=== PATIENT | female | born 1990 | race Caucasian/White ===

== ENCOUNTER 2025-01-01 12:14 | Emergency (ER) | payer BC, MEDICAID ==
[~2025-01-01] VITALS: Ht 165.1 cm; Wt 92.4 kg
[~2025-01-01 12:14] MED LIST: NO HOME MEDS
[2025-01-01 12:23] VITALS: BP 149/80; PULSE 79; O2SAT 98
[2025-01-01 12:45] LABS: BILIRUBIN,URINE NEGATIVE (Neg); CLARITY,URINE CLEAR (Clear); COLOR,URINE YELLOW (Yellow); GLUCOSE, URINE NEGATIVE (Neg); KETONES,URINE NEGATIVE (Neg); LEUKOCYTE ESTERASE ,URINE NEGATIVE (Neg); NITRITES, URINE NEGATIVE (Neg); OCCULT BLOOD,URINE NEGATIVE (Neg); PH,URINE 6.5 (4.8-8.0); PROTEIN,URINE NEGATIVE (Neg); UROBILINOGEN,URINE 0.2 E.U/dL (0.2-1.0)
[2025-01-01 12:50] LABS: UA COLLECTION TYPE CLN CATCH MIDSTREAM
--- NOTE | 2025-01-01 12:56 | RADIOLOGY REPORT ---
EXAM: XR Lumbosacral Spine, 2 or 3 Views CLINICAL INDICATION: FALL TECHNIQUE: Frontal and lateral views of the lumbar spine and sacrum. COMPARISON: None FINDINGS: VERTEBRAE: Unremarkable. No acute fracture. Normal alignment. SACRUM/COCCYX: Unremarkable as visualized. No acute fracture. DISC SPACES: No acute findings. No significant narrowing. SOFT TISSUES: Unremarkable. OTHER FINDINGS: . IMPRESSION: No acute fracture.
[2025-01-01 14:11] LABS: HCG SERUM QL NEGATIVE
--- NOTE | 2025-01-01 14:46 | Physician Documentation ---
History of Present Illness ~ Chief Complaint: Mechanical Fall Stated Complaint: BACK PAIN Time Seen by MD: 14:36 OK to notify your PCP?: Yes Primary Medical Doctor: no md HPI He is a 34-year-old female presenting to our emergency department with reports of left sided musculoskeletal low back pain with sitting and moving certain directions. She reports falling down about 3 stairs earlier today and landed on her lower back, no loss consciousness, no head strike, no thinners. She did put her right hand down to catch her fall and there is no abrasions or pain to that hand. Concerns that 8 weeks ago she did have an ectopic for which they removed her fallopian tube and has had 0 complications, denies any vaginal bleeding at this time. Medication Reconciliation Allergies: Coded Allergies: Sulfa (Sulfonamide Antibiotics) (Verified Allergy, Unknown, 01/01/25) aspirin (Verified Adverse Reaction, Unknown, NAUSEA, 01/01/25) Scheduled Cyclobenzaprine* (Cyclobenzaprine*), 1 TAB PO HS, (Reported) Lidocaine (Lidoderm), 1 PATCH TOP DAILY, (Reported) Miscellaneous Medications Home Med List (No Home Medications), (Reported) Past Medical History Past Medical History: No Pertinent History Past Surgical History: no surgical history Alcohol Use: None Lives with: Spouse Lives In: Home Review of Systems ROS All symptoms of systems reviewed and negative except mentioned in HPI. Physical Exam Vital Signs: RN Vital Signs have been reviewed: Yes, Temperature: 98.1, Source: Oral, Heart Rate: 79, Respiratory Rate: 18, BP: 149/80, Pulse Oximetry: 98, Weight: 92.400 Physical Exam General: conscious, coherent, non-toxic appearing, follows commands appropriately and in no apparent distress. Skin: Warm and dry without rash. HEENT: Head: Normocephalic without evidence of trauma. Eyes: Sclerae and conjunctiva normal. Ears: No external erythema or edema. Nose/face: No rhinorrhea. Mouth/throat: Mucous membranes are moist. Neck: Supple. Trachea midline. No JVD. Chest: Good expansion without retractions or grunting. Equal chest rise and fall. Lungs clear bilaterally to auscultation. Heart: No cyanosis. S1 and S2 normal. No murmurs gallops clicks or rubs. Extremities: Full range of motion. Good strength, bilaterally. No cyanosis, clubbing or edema. Neurologic: A&Ox4. Moves all extremities. Speech is clear. Gait normal. Back: normal inspection, no CVA tenderness, no vertebral tenderness, muscle spasm, tender Back Pain with palpation to left lumbar area muscles. Progress Results/Orders Results/Orders Completed Orders - ALESIA QUICK [employer]NA[employer] Ketorolac Trometh 30mg/Ml Vial (Toradol (01/01/25 14:50) Cyclobenzaprine Tablet (Flexeril Tablet) (01/01/25 14:50) Medications Received in ER Medications (Trade) Dose Ordered Sig/Linus Route PRN Reason Start Time Stop Time Status Last Admin Dose Admin (Toradol inj. 30mg/ml) 30 mg ONCE ONCE IM 01/01/25 14:50 01/01/25 15:01 DC 01/01/25 15:11 30 MG (Flexeril tablet) 10 mg ONCE ONCE PO 01/01/25 14:50 01/01/25 14:57 DC 01/01/25 15:11 10 MG Vital Signs 01/01/25 01/01/25 01/01/25 12:23 15:11 15:16 Temp 98.1 Pulse 79 Resp 18 16 16 B/P (MAP) 149/80 Pulse Ox 98 Laboratory Tests Test 01/01/25 12:29 01/01/25 13:09 Urine Specimen Description Cln catch midstream Urine Color Yellow Urine Clarity Clear Urine pH 6.5 Urine Specific [place] 1.015 Urine Protein Negative Urine Glucose (UA) Negative Urine Ketones Negative Urine Occult Blood Negative Urine Nitrite Negative Urine Bilirubin Negative Urine Urobilinogen 0.2 Urine Leukocyte Esterase Negative Volume Urine Centrifuged 10 ml Urine Comment Human Chorionic Gonadotropin, Qual Negative EKG/XRAY/CT/US/VASC/MRI Bone/Soft Tissue X-Ray (Spine) : Interpreted By: both Views: 2 VIEW Indication: pain Location: lumbar spine Impression: normal Additional Comment No acute fracture, no soft tissue swelling, normal vertebral body and disc spaces. Medical Decision Making Findings She is a 34-year-old female who has low back pain after falling down 3 stairs and landing on it. She is able to ambulate to the treatment area without assistance there are no abrasions to the area there is muscle tenderness to palpation with a spasm. No step-offs or deformities. No CVA tenderness. Able to stand erect. Differential diagnosis includes cauda equina syndrome, herniation, malignancy, infection, and renal calculi. Her urinalysis was normal and she is not . She does not have any numbness or weakness in the saddle area, or loss of bowel or bladder to rule out cauda equina syndrome. She was given Toradol and Flexeril during her stay for pain relief. She will be discharged with instructions for Tylenol, ibuprofen, ice/heat for comfort, flexeril and Lidoderm 5% patches to help with her muscle strain. She should follow up with her primary care provider in 3 days, and return back here for any new or worsening symptoms. Additional Comment cauda equina syndrome, herniation, malignancy, infection, and renal calculi. Departure Disposition: 01 HOME / SELF CARE / HOMELESS Impression: Primary Impression: Back muscle spasm Additional Impression: Fall Condition: Stable Discharge Instructions: Muscle Strain, [id number] Additional Instructions: Please take acetaminophen (also called Tylenol) for your pain. You can take 1 grams every 4-6 hours. Do not take more than 4 grams over the course of a day from all medications you take: It is a common ingredient in other medications (such as [place], Vicodin, Tylenol No. 3, etc.) so please read the labels carefully. If you are only taking Tylenol, this is every 6 hours. If you have a history of liver disease, you should not take acetaminophen as it can worsen your liver function. If your pain is not controlled, you can also take ibuprofen (also called Advil or Motrin) as directed. As discussed you should take ibuprofen (also called Advil or Motrin) or naproxen (also called a Aleve) for your pain. If you are taking ibuprofen, you can take 600 mg every 6 hours, or 800 mg every 8 hours. If you are taking naproxen, you can take 500 mg every 12 hours. Do not take more than this amount as it can cause kidney problems or bleeding in your stomach. Do not take these medications at the same time as it can increase your risk for these side effects. If you have a history of heart problems or have had uncontrolled blood pressure for a significant period of time she should not take these medications as it can increase your risk for heart attack or stroke. If your pain is not controlled, you can also take acetaminophen (also called Tylenol) as directed. As always, please take medications as directed. If you have any questions at all regarding your medica tions please contact the pharmacist, emergency department or your regular doctor. Follow up with your primary care provider in 3 days. Thank you for choosing the [facility] Emergency Department today. We hope you feel better soon! Referrals: NO PRIMARY CARE PROVIDER (PCP) Education Educated: Patient Educated regarding: diagnosis, treatment, prognosis, need for follow up Signature Scribe Signature: none Attestation: Alesia Klein NP . 01/01/25 15:20 ALESIA QUICK [facility] January 01, 2025 14:46
[2025-01-01] MEDS: ketorolac trometh 30MG/ML vial 30 MG/ML VIAL IM ONE (15:11)
[2025-01-01] MEDS: cyclobenzaprine 10mg tablet PO ONE (15:11)
[2025-01-01 15:16] VITALS: RESP 16
[2025-01-01] MEDS ORDERED: CYCL-1 PO (15:19)
[2025-01-01] MEDS ORDERED: LIDO700A32 TOP ×2 (15:19→15:38)
[2025-01-01] MEDS ORDERED: CYCL-394 PO (15:26)
[2025-01-01] MEDS ORDERED: CYCL-357 PO (15:37)
[2025-01-01 15:43] VITALS: TEMP 98.1
== END 2025-01-01 15:47 | disposition home or self-care (01) ==
LOC: ER 12:15
DX: M62.830 Muscle spasm of back (principal); Z88.2 Allergy status to sulfonamides; Z88.6 Allergy status to analgesic agent; Z79.899 Other long term (current) drug therapy; W10.9XXA Fall (on) (from) unspecified stairs and steps, initial encounter; Y93.89 Activity, other specified; Y92.89 Other specified places as the place of occurrence of the external cause; Y99.8 Other external cause status
CPT/HCPCS: 36415; 72100; 81003; 84703; 96372; 99284; J1885